=== PATIENT | male | born 1960 | race Caucasian/White ===

== ENCOUNTER 2021-02-16 15:46 | Emergency (ER) | payer OTHER ==
[~2021-02-16] VITALS: Ht 188 cm; Wt 132.5 kg
--- NOTE | 2021-02-16 16:06 | NUR ---
[place] IN [place] IN [facility] WITH DR ESCALERA AT BS. PT EDUCATED ON ER PROCESS AND POC AND VERBALIZES UNDERSTANDING. CALL LIGHT IS WITHIN REACH OF PT. PT DENIES ANY NEEDS AT THI S TIME. AWAITING NEW ORDERS FROM ERP.
[2021-02-16] MEDS ORDERED: APIXABAN 5 MG TABLET ONE (16:31)
--- NOTE | 2021-02-16 16:38 | NUR ---
PT MEDICATED PER MAR AT THIS TIME. PT D/C WITH D/C SUMMARY AND SCRIPTS. ALL QUESTIONS ANSWERED. PT AMBULATES TO REGISTRATION DESK WITH STEADY GAIT IN CARE OF FOR D/C HOME. PT DENIES ANY OTHER NEEDS PERTAINING TO THIS VISIT. D/C VSS.
[2021-02-16 17:04] VITALS: BP 144/78
[2021-02-16] MEDS ORDERED: APIXABAN 5 MG TABLET PO ONE (21:00)
== END 2021-02-16 17:16 | disposition home or self-care (01) ==
LOC: ED 16:30
DX: I82.412 Acute embolism and thrombosis of left femoral vein (principal); I82.432 Acute embolism and thrombosis of left popliteal vein; E11.9 Type 2 diabetes mellitus without complications
CPT/HCPCS: 99283

== ENCOUNTER → 2021-02-16 | Outpatient (CLI) | payer MEDICAID, OTHER | END | disposition home or self-care (01) | LOC: RAD 13:14 | PROVIDERS: ATTEND Physician Assistant | DX: I82.412 Acute embolism and thrombosis of left femoral vein (principal); R22.42 Localized swelling, mass and lump, left lower limb ==

== ENCOUNTER → 2021-02-25 | Outpatient (CLI) | payer OTHER ==
[~2021-02-25] MED LIST: APIX5TAB4 PO; OMNIPAQUE 350 MG/ML, 100ML BOTTLE ONE
== END | disposition home or self-care (01) ==
LOC: CFH 12:26
PROVIDERS: ATTEND Internal Medicine Cardiovascular Disease
DX: I27.82 Chronic pulmonary embolism (principal); I42.9 Cardiomyopathy, unspecified; I26.99 Other pulmonary embolism without acute cor pulmonale
CPT/HCPCS: 71275; 82565; Q9967

== ENCOUNTER 2021-02-26 09:01 | Observation (INO) | payer OTHER ==
[~2021-02-26] VITALS: Ht 188 cm; Wt 132.7 kg
--- NOTE | 2021-02-26 09:23 | NUR ---
BIB EMS FOR C/O HAVING ONE LARGE BOUT OF BRIGHT RED BLOOD EMESIS THIS MORNING. PT WAS DX W/ DVT LAST WEEK IN L LEG AND WAS FOUND TO HAVE PE'S IN UPPER AND LOWER L LUNG. DENIES CP/SOB. VS [employer] HR 40-60, BP 100/70, BS 183. DENIES PAIN TO L CALF. MILD SWELLING AND REDNESS NOTED TO L LEG. PT NOTED TO BE 89% RA ON ARRIVAL PLACED ON 2L NC. PT RESTING ON GURNEY. NADN. MONITORS APPLIED. VSS. CALL LIGHT IN REACH. ERP DR. BENSON AT BEDSIDE FOR EVAL.
[2021-02-26] MEDS ORDERED: PANTOPRAZOLE 80 MG in SODIUM CHLORIDE 0.9% 50 ML IVPB ONE (10:00)
[2021-02-26] MEDS ORDERED: SODIUM CHLORIDE 0.9% 1,000ML IVBOLUS ONE (10:00)
[2021-02-26] MEDS ORDERED: FAMOTIDINE 20 MG/2 ML IVPush ONE (10:00)
[2021-02-26] MEDS ORDERED: ONDANSETRON 2MG/ML, 2ML IVPush ONE (10:00)
[2021-02-26] MEDS ORDERED: SODIUM CHLORIDE FLUSH 10ML SYR IVF ONE (10:00)
[2021-02-26] MEDS ORDERED: ONDANSETRON 2MG/ML, 2ML ONE (10:01)
[2021-02-26] MEDS ORDERED: FAMOTIDINE 20 MG/2 ML ONE (10:01)
[2021-02-26 10:21] LABS: BASOPHILS % (AUTO) 1 % (0-1); EOSINOPHILS % (AUTO) 2 % (1-7); LYMPHOCYTES % (AUTO) 13 % (22-44); MEAN CORPUSCULAR HEMOGLOBIN 30.7 pg (27.5-34.5); MEAN CORPUSCULAR HGB CONC 34.1 g/dL (33.2-36.2); MEAN PLATELET VOLUME 7.9 fL (7.4-10.4); MONOCYTES % (AUTO) 8 % (2-9); NEUTROPHILS % (AUTO) 77 % (42-75); PLATELET COUNT 162 x10^3/uL (130-400); RED BLOOD COUNT 5.26 x10^6/uL (4.38-5.82); RED CELL DISTRIBUTION WIDTH 14.9 % (9.4-14.8)
[2021-02-26 10:33] LABS: ALBUMIN 3.3 g/dL (3.4-5.0); ANION GAP 3 mmol/L (5-15); CALCIUM 8.2 mg/dL (8.5-10.1); CHLORIDE 108 mmol/L (98-107)
[2021-02-26 10:34] LABS: INTERNATIONAL NORMALIZED RATIO 1.03 (0.93-1.1)
--- NOTE | 2021-02-26 10:35 | NUR ---
PT RESTING ON GURNEY. NADN. GOMEZ.
[2021-02-26 10:37] LABS: ALANINE AMINOTRANSFERASE 20 U/L (12-78); ALKALINE PHOSPHATASE 55 U/L (45-117); BILIRUBIN,TOTAL 0.5 mg/dL (0.2-1.0); CREATININE 0.89 mg/dL (0.7-1.3)
--- NOTE | 2021-02-26 10:53 | NUR ---
PT CHART REVIEWED AND PLACED FOR RECHECK.
--- NOTE | 2021-02-26 11:25 | NUR ---
PT RESTING ON GURPORT [place]. HR NOTED TO BE 37-38. ERP NOTIFIED.
--- NOTE | 2021-02-26 12:37 | NUR ---
PT RESTING ON GURNEY. NADN. GOMEZ.
[2021-02-26 14:58] VITALS: BP 96/62
[2021-02-26] MEDS ORDERED: ENALAPRILAT 1.25 MG/ML, 2ML IVPush PRN (16:00)
[2021-02-26] MEDS ORDERED: ONDANSETRON ODT 4 MG PO PRN (16:00)
[2021-02-26] MEDS ORDERED: ONDANSETRON 2MG/ML, 2ML IVPush PRN (16:00)
[2021-02-26] MEDS: PANTOPRAZOLE 40 MG IV IVPush SCH (16:19)
[2021-02-26 17:06] VITALS: BP 121/74
[2021-02-26 18:29] VITALS: BP 127/79
[2021-02-26] MEDS: ACETAMINOPHEN 325 MG TABLET PO PRN (22:02)
[2021-02-27 00:27] VITALS: BP_SYST 132; BP_SYST 139; BP_DIAS 82; BP_DIAS 84
[2021-02-27 04:02] LABS: ANION GAP 3 mmol/L (5-15); CALCIUM 8.2 mg/dL (8.5-10.1); CHLORIDE 108 mmol/L (98-107); CREATININE 0.82 mg/dL (0.7-1.3)
[2021-02-27] MEDS: ACETAMINOPHEN 325 MG TABLET PO PRN (04:34)
[2021-02-27] MEDS: PANTOPRAZOLE 40 MG IV IVPush SCH (04:34)
[2021-02-27] MEDS ORDERED: MIDAZOLAM 1 MG/ML, 2ML ONE (07:11)
[2021-02-27] MEDS ORDERED: PROPOFOL 10 MG/ML, 20ML ONE (07:38)
[2021-02-27] MEDS ORDERED: LIDOCAINE 1%, 20ML ONE (07:38)
[2021-02-27] MEDS ORDERED: APIX5TAB4 PO (08:38)
[2021-02-27 09:41] VITALS: BP 122/79
== END 2021-02-27 10:03 | disposition home or self-care (01) ==
LOC: ED 09:24 → EDIP 11:11 → INTOOBSV 11:11 → 5SO 13:16 → UNDODISIN 02-27 10:03
PROVIDERS: ADMIT Family Medicine; ATTEND Hospitalist
DX: K92.0 Hematemesis (principal); Z20.822 Contact with and (suspected) exposure to COVID-19; I82.402 Acute embolism and thrombosis of unspecified deep veins of left lower extremity; I26.99 Other pulmonary embolism without acute cor pulmonale; I49.5 Sick sinus syndrome; E11.9 Type 2 diabetes mellitus without complications; F10.10 Alcohol abuse, uncomplicated; Z95.0 Presence of cardiac pacemaker; Z79.01 Long term (current) use of anticoagulants; Z87.891 Personal history of nicotine dependence; Z86.718 Personal history of other venous thrombosis and embolism; Z79.899 Other long term (current) drug therapy
CPT/HCPCS: 36415; 43235; 80048; 80053; 83605; 85018; 85025; 85610; 85730; 86850; 86900; 87635; 93005; 96365; 96375; 96376; 99284; C9113; G0378; J2250; J2405; J2704; J3490; J7030; 96361

== ENCOUNTER 2021-04-06 07:43 | Outpatient (CLI) | payer OTHER ==
[~2021-04-06 07:43] MED LIST changes: -OMNIPAQUE 350 MG/ML, 100ML BOTTLE ONE; +REGADENOSON 0.4 MG/5 ML SYRINGE ONE
== END 2021-04-06 23:59 | disposition home or self-care (01) ==
LOC: CFH 07:43
PROVIDERS: ATTEND Internal Medicine Cardiovascular Disease
DX: I34.0 Nonrheumatic mitral (valve) insufficiency (principal); I44.7 Left bundle-branch block, unspecified; R06.02 Shortness of breath; I42.9 Cardiomyopathy, unspecified; I26.99 Other pulmonary embolism without acute cor pulmonale
CPT/HCPCS: 78452; 93017; 93306; A9502; J2785